=== PATIENT | female | born 1930 | race Caucasian/White ===

== ENCOUNTER 2017-11-06 12:57 | Outpatient (CLI) | payer MEDICARE, BC | END 2017-11-06 12:58 | disposition home or self-care (01) | LOC: ULT 12:57 | PROVIDERS: ATTEND Family Medicine | DX: I50.9 Heart failure, unspecified (principal); R60.0 Localized edema; I34.0 Nonrheumatic mitral (valve) insufficiency; I07.1 Rheumatic tricuspid insufficiency | CPT/HCPCS: 93306 ==

== ENCOUNTER 2019-01-06 14:38 | Inpatient (IN) | payer MEDICARE, BC ==
--- NOTE | 2019-01-06 15:49 | CT ---
CT HEAD WITHOUT CONTRAST: Multiple axial tomograms obtained through the head without IV enhancement. INDICATION: Mental status change. COMPARISON: Comparison is made to a prior head CT of 06/07/2015. FINDINGS: Mild cortical volume loss. Moderate chronic ischemic white matter changes again seen and appear juany lar to the prior study. No evidence of acute mass or infarct. No evidence of hemorrhage. Sinuses a nd mastoids are well aerated. IMPRESSION: Moderately severe chronic ischemic changes again noted. No acute process. Lacunar infarcts cannot b e excluded given the degree of chronic ischemic change. Consider MRI if there are new neurologic def icits to assess for acute lacunar infarcts. POS: [facility]
--- NOTE | 2019-01-06 15:49 | RAD ---
PORTABLE CHEST: INDICATION: Mental status change. COMPARISON: 04/24/2018. FINDINGS: Cardiomegaly. Vascular markings upper normal. No evidence of infiltrate or significant effusion. IMPRESSION: Cardiomegaly. No acute lung process. POS: [facility]
[2019-01-06 16:06] LABS: Bilirubin Negative (Negative); Blood, Urine Small (Negative); Clarity CLEAR (Clear); Glucose, Urine (Dipstick) Negative (Negative); Leukocyte Large (Negative); Nitrite Negative (Negative); Protein, Urine (Dipstick) Trace mg/dL (Neg-Trace); Specific Gravity, Urine 1.009 (1.002-1.036); Urobilinogen 0.2 mg/dL (0.2-1.0)
[2019-01-06 16:07] LABS: Bacteria/HPF 1+ HPF (None Seen); Hyaline Casts/LPF 7-10 HYALINE CAST LPF (0-3 Hyaline); Pathc Cast-AUWi Flag 2.31 (0-2.49); Squamous Epithelial None Seen HPF (0-3)
[2019-01-06] MEDS ORDERED: cefTRIAXone\\ROCEPHIN 2 GM VIAL ONE (16:23)
[2019-01-06 16:28] LABS: Hemoglobin 13.1 g/dL (12.0-16.0); Mean Corpuscular Volume 93.9 fL (78.0-98.0); Mean Platelet Volume 7.8 fL (7.4-10.4); Platelet Count 280 thou/uL (130-400); RBC Distribution Width 18.8 % (11.5-14.5); Red Blood Cell (RBC) Count 4.37 mill/uL (4.20-5.40); White Blood Cell (WBC) Count 7.2 thou/uL (4.8-10.8)
[2019-01-06 16:33] LABS: INR-International Normal Ratio 1.7; PTT 34.2 SEC (22.9-36.1); Prothrombin Time 20.2 SEC (12.0-14.7)
[2019-01-06 16:41] LABS: Anisocytosis SLIGHT = 6-15 cells (100X) (0-5/hpf); Band 1 % (5-11); Eosinophils 2 % (0-10); Lymphocytes 19 % (21-51); MDiff Complete? YES; Monocytes 9 % (0-10); Neutrophil 68 % (42-75); Platelet Morphology Comment Appears Adequate
[2019-01-06 16:48] LABS: Digoxin 1.87 ng/mL (0.8-2.0)
[2019-01-06 16:50] LABS: ALT (SGPT) 20 U/L (8-55); AST (SGOT) 27 U/L (5-34); Albumin 4.1 g/dL (3.4-4.8); Alkaline Phosphatase 151 U/L (40-150); Anion Gap 17 mmol/L (10-20); BUN (Urea Nitrogen) 49 mg/dL (9.8-20.1); Bilirubin, Total 0.7 mg/dL (0.2-1.2); Calc. Creatinine Clearance 0 mL/min (70-130); Carbon Dioxide 32 mmol/L (23-31); Chloride 91 mmol/L (98-107); Estimated GFR-MDRD 35; Globulin 3.2 g/dL (2.4-3.5); Glucose 114 mg/dL (83-110); Potassium 4.2 mmol/L (3.5-5.1); Protein, Total 7.3 g/dL (6.0-8.3); Sodium 136 mmol/L (136-145)
[2019-01-06 17:11] LABS: CKMB 1.5 ng/mL (0-6.6)
[2019-01-06] MEDS ORDERED: Enoxaparin Sodium 60 MG/0.6 ML SYRINGE ONE (17:14)
[2019-01-06] MEDS ORDERED: Diabetic Tussin 200 MG/10 ML UDCUP PO PRN (17:40)
[2019-01-06] MEDS ORDERED: Benzonatate 100 MG CAP PO PRN (17:40)
[2019-01-06] MEDS ORDERED: Bisacodyl 5 MG TAB PO PRN (17:40)
[2019-01-06] MEDS ORDERED: Bisacodyl 10 MG SUPP PR PRN (17:40)
[2019-01-06] MEDS ORDERED: hydrALAZINE 20 MG/ML VIAL SLOW IVP PRN (17:40)
[2019-01-06] MEDS ORDERED: Ondansetron PF 4 MG/2 ML Vial IVP PRN ×2 (17:40)
[2019-01-06] MEDS ORDERED: Nitroglycerin 0.4 MG TAB (25 Tab Bottle) SL PRN (17:40)
[2019-01-06] MEDS ORDERED: Senokot S 8.6-50 MG TAB PO PRN ×2 (17:40)
[2019-01-06] MEDS ORDERED: Calcium Carbonate 500 MG ChewTAB PO PRN (17:40)
[2019-01-06] MEDS ORDERED: cloNIDine 0.1 MG TAB PO PRN (17:40)
[2019-01-06] MEDS ORDERED: Pharmacy to MANAGE WARFARIN PO PRN (18:00)
[2019-01-06 20:22] VITALS: BMI 25.1
[2019-01-06 20:50] LABS: Troponin I 0.041 ng/mL (< 0.028)
[2019-01-06] MEDS ORDERED: Famotidine/PF 20 mg/2ml Vial SLOW IVP SCH (21:00)
[2019-01-06] MEDS: Sodium Chloride 0.9% 1,000 ML IV SCH (21:29)
[2019-01-06] MEDS: Atorvastatin Calcium 40 MG TAB PO SCH (21:30)
[2019-01-07] MEDS: Sodium Chloride 0.9% 1,000 ML IV SCH ×2 (01:37→08:57)
--- NOTE | 2019-01-07 01:43 | HP ---
PRIMARY CARE PHYSICIAN: Maya Villela MD. PRIMARY ELECTION ASSISTANT: William Graf MD. CHIEF COMPLAINT: Confusion. HISTORY OF PRESENTING ILLNESS: Ms. Garcia is an 88-year-old female with past medical history of paroxysmal atrial fibrillation, on chronic anticoagulation with Coumadin, as well as history of coronary artery disease and hypertension, who presented to the emergency room with the above-mentioned complaints. History is mainly obtained by the patient herself, but it is also supplemented by her daughter present at the bedside. According to Ms. Garcia's daughter, she was acting different than usual and was acting confused. The patient's family reports that she got out of rehab on Friday after being admitted [facility]. She has been doing poorly since then. She was more weak when she got out and has been getting home health, but has been in the wheelchair since discharge. She herself denies any chest pain, shortness of breath, nausea, vomiting, diarrhea, abdominal pain, dysuria, frequency or urgency, cough, fever, etc. She was acting different according to the family when she got up at 3:00 a.m. in the morning to try to make breakfast for everybody. She did not remember few things like letting the dogs out in the morning. Because of these symptoms, she was brought into the emergency room. There is also a history of bradycardia with her heart rate being in the high 30s, but I am not sure if this was provided by the family or by the EMS. Upon presentation to the ER, her blood pressure was 170/70 with a heart rate of 56. She underwent general evaluation including a chest x-ray and CT scan of the brain. Her CT scan of the brain showed age-indeterminate lacunar infarction, severe chronic small-vessel ischemic changes. EKG showed rate-controlled atrial fibrillation at 58 beats per minute. She was also found to have subtherapeutic INR with INR of 1.7. Rest of her workup was consistent with mild acute renal insufficiency with creatinine of 1.41 and urinalysis suggestive of UTI. Digoxin level was checked and was unremarkable. She was given Rocephin and one dose of Lovenox 1 mg/kg and is now being admitted for further workup for stroke. She will also be admitted for UTI. PAST MEDICAL HISTORY: 1. Chronic paroxysmal atrial fibrillation, on chronic anticoagulation. 2. History of atrial flutter with ablation history. 3. Coronary artery disease. 4. GERD. 5. Accelerated hypertension. 6. History of UTI. 7. History of breast cancer. 8. History of bladder cancer. PAST SURGICAL HISTORY: 1. Bilateral hip replacement. 2. Breast surgery. 3. Hysterectomy. 4. History of mastectomy. SOCIAL HISTORY: She lives at home with her family. She has six children. She was able to name all of them. She has no history of drug, tobacco, or alcohol abuse. FAMILY HISTORY: Significant for lung cancer in father and Alzheimer's in her mother. ALLERGIES: NO KNOWN MEDICATION ALLERGIES. HOME MEDICATIONS: As listed in the ER records. She is on the followin. Digoxin 125 mcg daily. 2. Colace 100 mg daily. 3. Pepcid 20 mg daily. 4. Lasix 40 mg daily. 5. Lisinopril 10 mg daily. 6. Metoprolol tartrate 50 mg daily. 7. Atorvastatin 40 mg at bedtime. 8. Tylenol p.r.n. 9. Bisacodyl p.r.n. 10. Clonidine p.r.n. 11. Ferrous sulfate 325 daily. 12. Melatonin daily. 13. Metolazone 2.5 mg one tablet to give with Lasix. 14. Tramadol p.r.n. 15. MiraLAX p.r.n. 16. Vitamin C daily. 17. Warfarin 2 mg Friday, Friday, Friday, Friday, Friday and 4 mg on . These medications will further need to be confirmed from her pharmacy. CODE STATUS: Full code discussed with the patient in detail. She is capable to make her own decisions and is awake, alert, and oriented x3. This was also discussed with her daughter and son-in-law present at bedside. LABORATORY DATA: Her CBC is unremarkable. INR 1.7. Serum chemistry showed chloride 91, bicarb 32, BUN 49, creatinine 1.41, blood sugar is 114, alkaline phosphatase slightly elevated at 151. CK-MB is normal. Troponin 0.037. Urinalysis shows large leukocyte esterase, wbc's, some rbc's and plus 1 bacteria. Chest x-ray by my review shows no evidence of pleural effusion, edema, or infiltrate. It has cardiomegaly. CT scan of the brain per my review shows moderately severe chronic small-vessel ischemic changes and possible age-indeterminate lacunar infarction. PHYSICAL EXAMINATION: VITAL SIGNS: Upon presentation, blood pressure 170/70, pulse of 56, respirations 14, temperature 97.7, saturating 95% on room air. GENERAL: No acute distress. Awake, alert, and oriented x3. HEENT: Mucous membrane is moist and pink. No oropharyngeal exudate or erythema. Head is normocephalic and atraumatic. Pupils are equal and reactive to light and accommodation. Extraocular movement intact. NECK: Supple without any lymphadenopathy, JVD, or bruit. CHEST: Clear to auscultation without any wheezing, rales, or rhonchi. HEART: Rate and rhythm is regular without any murmurs, rubs, or gallops. ABDOMEN: Soft, nontender, and nondistended with positive bowel sounds. EXTREMITIES: Free of any cyanosis, clubbing, or edema. NEUROLOGICAL: Nonfocal. SKIN: Free of any rashes or bruises, feels warm and dry to touch. PSYCHIATRIC: Normal affect. IMPRESSION AND PLAN: 1. Atrial fibrillation, currently rate controlled. We will use the beta jayme, but we will reduce the dose to 1/2 from 50 mg to 25 mg daily given the presenting complaint of bradycardia. She will be on quality assurance monitor body and digoxin for now. We will continue her Coumadin. She is subtherapeutic, and in the light of possible CVA, we will bridge her with Lovenox until her INR is therapeutic. We will request Pharmacy to monitor it and we will start her on Coumadin 5 mg daily. We will also obtain a transthoracic echocardiogram. Last one was done in October 2017, which showed a biatrial enlargement with moderate mitral and tricuspid regurgitation, but preserved ejection fraction of 50% to 55%. 2. History of breast cancer, status post mastectomy. 3. History of dyslipidemia. Restart her home medications once confirmed. 4. Code status, full code discussed with the patient in detail as above. 5. Deep venous thrombosis and gastrointestinal prophylaxis. The patient is already on Coumadin. We will add Pepcid. 6. Hypertension. Restart her metoprolol at a lower dose to prevent bradycardia. Hold the lisinopril in light of acute renal insufficiency for now. DISPOSITION: Ms. Garcia is currently being admitted to the hospital for urinary tract infection and rule out cerebrovascular accident. Estimated length of stay at this time is at least 2 to [address] scan is suggestive of lacunar infarction. We will have OT/PT evaluation done as well. Further management will depend upon her clinical course. Job ID: [id number]
[2019-01-07 06:45] LABS: #Lymphocytes 1.5 thou/uL (1.20-3.40); #Neutrophils 4.8 thou/uL (1.40-6.50); %Basophils 0.5 % (0.0-1.0); %Eosinophils 0.6 % (0.0-10.0); %Lymphocytes 19.6 % (21.0-51.0); %Monocytes 13.8 % (0.0-10.0); %Neutrophils 65.5 % (42.0-75.0); Hemoglobin 12.2 g/dL (12.0-16.0); Mean Corpuscular HGB CONC 32.2 g/dL (32.0-36.0); Mean Corpuscular Volume 93.1 fL (78.0-98.0); Mean Platelet Volume 7.7 fL (7.4-10.4); Platelet Count 282 thou/uL (130-400); RBC Distribution Width 18.8 % (11.5-14.5); Red Blood Cell (RBC) Count 4.06 mill/uL (4.20-5.40); White Blood Cell (WBC) Count 7.4 thou/uL (4.8-10.8)
[2019-01-07 06:46] LABS: INR-International Normal Ratio 1.7; Prothrombin Time 20.2 SEC (12.0-14.7)
[2019-01-07 07:01] LABS: Anion Gap 14 mmol/L (10-20); BUN (Urea Nitrogen) 34 mg/dL (9.8-20.1); Calc. Creatinine Clearance 35 mL/min (70-130); Calcium 9.5 mg/dL (7.8-10.44); Carbon Dioxide 31 mmol/L (23-31); Cardiac Risk 2.9 (Less than 4.5); Chloride 95 mmol/L (98-107); Cholesterol 120 mg/dl (< 200 Desired); Estimated GFR-MDRD 45; Glucose 104 mg/dL (83-110); HDL Cholesterol 42 mg/dL (>60 Neg Risk); LDL Cholesterol, Calculated 58 mg/dL; Sodium 136 mmol/L (136-145); Triglycerides 102 mg/dL (Less than 150)
--- NOTE | 2019-01-07 07:36 | PDOC.PN ---
- Subjective Encounter Start Date: 01/07/19 Encounter Start Time: 09:30 Subjective: No complaints overnight. Improved mental status. No pain. No CP/SOB - Objective Resuscitation Status - Order Detail: 01/06/19 18:47 Resuscitation Status Routine Resuscitation Status: FULL: Full Resuscitation Discussed with: discussed with pt and daughter and JACQUIE in detail MAR Reviewed: Yes Vital Signs & Weight: Vital Signs (12 hours) Temp Pulse Resp BP Pulse Ox 01/07/19 04:00 97.3 F L 68 16 166/72 H 98 01/07/19 00:00 98.2 F 77 16 159/71 H 96 01/06/19 20:20 97.5 F L 55 L 13 180/72 H 97 01/06/19 20:07 97.3 F L 57 L 16 153/68 H 98 01/06/19 20:00 97 Weight Weight 142 lb Result Diagrams: 01/07/19 06:06 01/07/19 06:06 Radiology Reviewed by me: Yes (MRI without acute stroke) Phys Exam - Physical Examination Constitutional: NAD HEENT: moist MMs Respiratory: no wheezing, no rales, no rhonchi Cardiovascular: RRR, no significant murmur Gastrointestinal: soft, positive bowel sounds Neurological: non-focal, moves all 4 limbs Psychiatric: normal affect Dx/Plan (1) Urinary tract infection Status: Suspected Comment: growing gram neg rods in urine culture, on Rocephin since 01/06/19 (2) Acute metabolic encephalopathy Code(s): G93.41 - METABOLIC ENCEPHALOPATHY Status: Acute Comment: secondary to UTI (3) Paroxysmal atrial fibrillation Code(s): I48.0 - PAROXYSMAL ATRIAL FIBRILLATION Status: Chronic Comment: subtherapeutic INR, Warfarin and started on full dose Lovenox (4) CAD (coronary artery disease) Code(s): I25.10 - ATHSCL HEART DISEASE OF [place] CORONARY ARTERY W/O ANG PCTRS Status: Chronic Comment: Stable. (5) Dyslipidemia Code(s): E78.5 - HYPERLIPIDEMIA, UNSPECIFIED Status: Chronic (6) Hypertension Code(s): I10 - ESSENTIAL (PRIMARY) HYPERTENSION Status: Chronic Qualifiers: Hypertension type: essential hypertension Qualified Code(s): I10 - Essential (primary) hypertension (7) GERD (gastroesophageal reflux disease) Code(s): K21.9 - GASTRO-ESOPHAGEAL REFLUX DISEASE WITHOUT ESOPHAGITIS Status: Chronic Comment: on Pepcid - Plan cont current plan of care, continue antibiotics, PT/OT, DVT proph w/lovenox, DVT proph w/SCDs continue IV abx -: MRI negative, will cancel neuro consult, no evidence CVA/TIA at this -: time * . - Discharge Day Encounter end time: 09:40
--- NOTE | 2019-01-07 07:57 | MRI ---
Exam: Brain MRI without contrast HISTORY: Transient ischemic attack. Altered mental status. COMPARISON: None FINDINGS: Calvarial marrow signal intensity: Appropriate T1 signal Gradient echo sequence: No hemorrhage Brain parenchyma: No mass, mass effect or midline shift. Brain volume, age-appropriate. Cortical am[place]quita-white matter differentiation: Preserved Restricted diffusion: Central arterial flow voids are maintained. Absent restricted diffusion White matter signal intensities: T2, FLAIR white matter hyperintensities due to chronic small vessel ischemic changes Sinuses: Adequate aeration of the paranasal sinuses and mastoid air cells. IMPRESSION: 1. Absent restricted diffusion. No acute infarct 2. Age-appropriate atrophy. 3. Chronic small vessel ischemic changes of the white matter.
[2019-01-07] MEDS: Aspirin 325 mg Enteric Coated Tablet PO SCH (08:57)
[2019-01-07] MEDS: Famotidine 20 MG TAB PO SCH (08:57)
[2019-01-07] MEDS: hydrALAZINE 20 MG/ML VIAL SLOW IVP PRN (13:00)
[2019-01-07] MEDS: cefTRIAXone\\ROCEPHIN 1 GM in Sodium Chloride 0.9% 100 ML IVPB SCH (16:59)
[2019-01-07] MEDS: Enoxaparin Sodium 60 MG/0.6 ML SYRINGE SC SCH (17:00)
[2019-01-07] MEDS: Warfarin Sodium 5 MG TAB PO SCH (17:00)
[2019-01-07] MEDS: Acetaminophen 325 MG TAB PO PRN (17:03)
[2019-01-07] MEDS: Atorvastatin Calcium 40 MG TAB PO SCH (21:53)
[2019-01-07] MEDS: Melatonin 3 MG TAB PO PRN (21:53)
[2019-01-08 05:51] LABS: INR-International Normal Ratio 1.7; Prothrombin Time 19.8 SEC (12.0-14.7)
[2019-01-08 06:01] LABS: Anion Gap 15 mmol/L (10-20); BUN (Urea Nitrogen) 21 mg/dL (9.8-20.1); Calc. Creatinine Clearance 43 mL/min (70-130); Calcium 9.2 mg/dL (7.8-10.44); Carbon Dioxide 26 mmol/L (23-31); Chloride 102 mmol/L (98-107); Estimated GFR-MDRD 57; Glucose 95 mg/dL (83-110); Potassium 3.9 mmol/L (3.5-5.1); Sodium 139 mmol/L (136-145)
[2019-01-08] MEDS: Sodium Chloride 0.9% 1,000 ML IV SCH ×2 (06:17→08:49)
[2019-01-08] MEDS: Aspirin 325 mg Enteric Coated Tablet PO SCH (08:49)
[2019-01-08] MEDS: Famotidine 20 MG TAB PO SCH (08:49)
[2019-01-08] MEDS ORDERED: Sodium Chloride 0.9% 1,000 ML IV SCH (13:15)
--- NOTE | 2019-01-08 15:53 | PDOC.PN ---
- Subjective Encounter Start Date: 01/08/19 Encounter Start Time: 11:15 Subjective: pt drowsy but arousable, follows command and answers questions - Objective Resuscitation Status - Order Detail: 01/06/19 18:47 Resuscitation Status Routine Resuscitation Status: FULL: Full Resuscitation Discussed with: discussed with pt and daughter and JACQUIE in detail Vital Signs & Weight: Vital Signs (12 hours) Temp Pulse Resp BP BP Pulse Ox 01/08/19 15:47 98.4 F 64 16 130/63 97 01/08/19 11:33 98.6 F 78 16 182/75 H 97 01/08/19 11:30 182/75 H 01/08/19 08:40 97 01/08/19 07:56 98.5 F 86 18 142/65 H 94 L 01/08/19 04:00 98.3 F 83 19 177/79 H 97 Weight Admit Weight 142 lb Weight 142 lb Result Diagrams: 01/07/19 06:06 01/08/19 05:22 Phys Exam - Physical Examination Respiratory: no wheezing, no rales, no rhonchi, wheezing present, clear to auscultation bilateral Cardiovascular: RRR, no significant murmur, no rub, gallop, irregular Gastrointestinal: soft, non-tender, no distention, positive bowel sounds Musculoskeletal: no edema, pulses present, edema present Neurological: non-focal, normal sensation, moves all 4 limbs Dx/Plan (1) Acute metabolic encephalopathy Code(s): G93.41 - METABOLIC ENCEPHALOPATHY Status: Acute Comment: secondary to UTI (2) Atrial fibrillation Code(s): I48.91 - UNSPECIFIED ATRIAL FIBRILLATION Status: Chronic Qualifiers: Atrial fibrillation type: chronic Qualified Code(s): I48.2 - Chronic atrial fibrillation Comment: Rate controlled, on coumadin and therapeutic. (3) Hypertension Code(s): I10 - ESSENTIAL (PRIMARY) HYPERTENSION Status: Chronic Qualifiers: Hypertension type: essential hypertension Qualified Code(s): I10 - Essential (primary) hypertension (4) Urinary tract infection Status: Suspected Comment: growing gram neg rods in urine culture, on Rocephin since 01/06/19 - Plan will continue abx for now -: pt did not sleep last night, explained in details to pt's family -: about delirum. Pt will need dementia screen when she is back to her -: baseline. * . Review of Systems - Review of Systems Respiratory: negative: Cough, Dry, Shortness of Breath, Hemoptysis, SOB with Excertion, Pleuritic Pain, Sputum, Wheezing Cardiovascular: negative: chest pain, palpitations, orthopnea, paroxysmal nocturnal dyspnea, edema, light headedness, other Gastrointestinal: negative: Nausea, Vomiting, Abdominal Pain, Diarrhea, Constipation, Melena, Hematochezia, Other - Medications/Allergies Allergies/Adverse Reactions: Allergies Allergy/AdvReac Type Severity Reaction Status Date / Time nitrofurantoin Allergy Verified 01/06/19 22:57 [From Macrobid] Medications: Current Medications Acetaminophen (Tylenol) 650 mg PO Q4H PRN PRN Reason: Headache/Fever/Mild Pain (1-3) Last Admin: 01/07/19 17:03 Dose: 650 mg Aspirin (Ecotrin) 325 mg PO DAILY [facility] Last Admin: 01/08/19 08:49 Dose: 325 mg Atorvastatin Calcium (Lipitor) 40 mg PO HS [facility] Last Admin: 01/07/19 21:53 Dose: 40 mg Benzonatate (Tessalon) 100 mg PO Q6H PRN PRN Reason: Cough Bisacodyl (Dulcolax) 10 mg PO DAILYPRN PRN PRN Reason: Constipation Bisacodyl (Dulcolax) 10 mg [place] DAILYPRN PRN PRN Reason: Constipation Calcium Carbonate (Tums) 1,000 mg PO Q4H PRN PRN Reason: Heartburn or Indigestion Clonidine (Catapres) 0.1 mg PO Q4H PRN PRN Reason: SBP > 160____ Last Admin: 01/08/19 11:30 Dose: 0.1 mg Enoxaparin Sodium (Lovenox) 60 mg SC 1700 [facility] Last Admin: 01/07/19 17:00 Dose: 60 mg Famotidine (Pepcid) 20 mg PO DAILY [facility] Last Admin: 01/08/19 08:49 Dose: 20 mg Guaifenesin (Robitussin Sf) 200 mg PO Q4H PRN PRN Reason: Cough Hydralazine HCl (Apresoline) 10 mg SLOW IVP Q4H PRN PRN Reason: SBP > 170 and HR < 70 Last Admin: 01/07/19 13:00 Dose: 10 mg Ceftriaxone Sodium 1 gm/ (Sodium Chloride) 100 mls @ 200 mls/hr IVPB Q24HR [facility] Last Admin: 01/07/19 16:59 Dose: 100 mls Sodium Chloride (Normal Saline 0.9%) 1,000 mls @ 30 mls/hr IV .Q24H [facility] Last Admin: 01/08/19 13:29 Dose: 1,000 mls Melatonin (Melatonin) 3 mg PO HSPRN PRN PRN Reason: Insomnia Last Admin: 01/07/19 21:53 Dose: 3 mg Metoprolol Succinate (Toprol Xl) 25 mg PO DAILY [facility] Last Admin: 01/08/19 08:49 Dose: 25 mg Miscellaneous Medication (Pharmacy To Dose) 1 each PO PRN PRN PRN Reason: . Nitroglycerin (Nitrostat) 0.4 mg SL Q5MIN PRN PRN Reason: Chest Pain Ondansetron HCl (Zofran) 4 mg IVP Q6H PRN PRN Reason: Nausea/Vomiting Quetiapine Fumarate (Seroquel) 25 mg PO HS PRN PRN Reason: Agitation Senna/Docusate Sodium (Senokot S) 2 tab PO BID PRN PRN Reason: Constipation Sodium Chloride (Flush - Normal Saline) 10 ml IVF PRN PRN PRN Reason: Saline Flush Sodium Chloride (Flush - Normal Saline) 10 ml IVF PRN PRN PRN Reason: Saline Flush Warfarin Sodium (Coumadin) 5 mg PO 1700 [facility] Last Admin: 01/07/19 17:00 Dose: 5 mg
[2019-01-08] MEDS: cefTRIAXone\\ROCEPHIN 1 GM in Sodium Chloride 0.9% 100 ML IVPB SCH (16:39)
[2019-01-08] MEDS: Warfarin Sodium 5 MG TAB PO SCH (16:40)
[2019-01-08] MEDS: Enoxaparin Sodium 60 MG/0.6 ML SYRINGE SC SCH (16:40)
[2019-01-08] MEDS: Atorvastatin Calcium 40 MG TAB PO SCH (21:31)
[2019-01-09 05:47] LABS: INR-International Normal Ratio 1.9; Prothrombin Time 21.7 SEC (12.0-14.7)
[2019-01-09] MEDS: Acetaminophen 325 MG TAB PO PRN (06:18)
[2019-01-09] MEDS ORDERED: Polyethylene Glycol 3350 17 GM Packet PO PRN (08:37)
[2019-01-09] MEDS ORDERED: Docusate 100 MG CAP PO PRN (08:38)
[2019-01-09] MEDS ORDERED: Furosemide 20 MG TAB PO SCH (09:00)
[2019-01-09] MEDS: Aspirin 325 mg Enteric Coated Tablet PO SCH (10:12)
[2019-01-09] MEDS: Furosemide 40 MG TAB PO SCH (10:13)
[2019-01-09] MEDS: Lisinopril 10 MG TAB PO SCH ×2 (10:15→20:27)
[2019-01-09] MEDS: Metoprolol Tartrate 100 MG TAB PO SCH ×2 (10:15→20:27)
[2019-01-09] MEDS: Magnesium Oxide 400 MG TAB PO SCH (10:16)
[2019-01-09] MEDS: Famotidine 20 MG TAB PO SCH (10:17)
[2019-01-09] MEDS: hydrALAZINE 20 MG/ML VIAL SLOW IVP PRN (12:48)
--- NOTE | 2019-01-09 14:47 | PDOC.PN ---
- Subjective Encounter Start Date: 01/09/19 Encounter Start Time: 10:30 Subjective: pt more awake today - Objective Resuscitation Status - Order Detail: 01/06/19 18:47 Resuscitation Status Routine Resuscitation Status: FULL: Full Resuscitation Discussed with: discussed with pt and daughter and JACQUIE in detail Vital Signs & Weight: Vital Signs (12 hours) Temp Pulse Resp BP BP Pulse Ox 01/09/19 12:48 60 170/71 H 01/09/19 12:00 97.8 F 60 20 179/80 H 96 01/09/19 10:19 96 01/09/19 10:15 157/72 H 01/09/19 08:08 97.5 F L 78 18 157/72 H 96 01/09/19 04:00 97.7 F 86 16 197/95 H 94 L Weight Admit Weight 142 lb Weight 142 lb Result Diagrams: 01/07/19 06:06 01/08/19 05:22 Phys Exam - Physical Examination Respiratory: no wheezing, no rales, no rhonchi, wheezing present, clear to auscultation bilateral Cardiovascular: RRR, no significant murmur, no rub, gallop, irregular Gastrointestinal: soft, non-tender, no distention, positive bowel sounds Musculoskeletal: no edema, pulses present, edema present Dx/Plan (1) Acute metabolic encephalopathy Code(s): G93.41 - METABOLIC ENCEPHALOPATHY Status: Acute Comment: secondary to UTI (2) Atrial fibrillation Code(s): I48.91 - UNSPECIFIED ATRIAL FIBRILLATION Status: Chronic Qualifiers: Atrial fibrillation type: chronic Qualified Code(s): I48.2 - Chronic atrial fibrillation Comment: Rate controlled, on coumadin and therapeutic. (3) Hypertension Code(s): I10 - ESSENTIAL (PRIMARY) HYPERTENSION Status: Chronic Qualifiers: Hypertension type: essential hypertension Qualified Code(s): I10 - Essential (primary) hypertension (4) Urinary tract infection Status: Suspected Comment: growing gram neg rods in urine culture, on Rocephin since 01/06/19 - Plan will stop her fluids and restart her home meds. abx changed to cipro -: will get PT to see pt. possible discharge in 1-2 days * . Review of Systems - Review of Systems Respiratory: negative: Cough, Dry, Shortness of Breath, Hemoptysis, SOB with Excertion, Pleuritic Pain, Sputum, Wheezing Cardiovascular: negative: chest pain, palpitations, orthopnea, paroxysmal nocturnal dyspnea, edema, light headedness, other Gastrointestinal: negative: Nausea, Vomiting, Abdominal Pain, Diarrhea, Constipation, Melena, Hematochezia, Other - Medications/Allergies Allergies/Adverse Reactions: Allergies Allergy/AdvReac Type Severity Reaction Status Date / Time nitrofurantoin Allergy Verified 01/06/19 22:57 [From Macrobid] Medications: Current Medications Acetaminophen (Tylenol) 650 mg PO Q4H PRN PRN Reason: Headache/Fever/Mild Pain (1-3) Last Admin: 01/09/19 06:18 Dose: 650 mg Aspirin (Ecotrin) 325 mg PO DAILY [facility] Last Admin: 01/09/19 10:12 Dose: 325 mg Atorvastatin Calcium (Lipitor) 40 mg PO HS [facility] Last Admin: 01/08/19 21:31 Dose: 40 mg Benzonatate (Tessalon) 100 mg PO Q6H PRN PRN Reason: Cough Bisacodyl (Dulcolax) 10 mg [place] DAILYPRN PRN PRN Reason: Constipation Calcium Carbonate (Tums) 1,000 mg PO Q4H PRN PRN Reason: Heartburn or Indigestion Digoxin (Lanoxin) 0.125 mg PO DAILY [facility] Docusate Sodium (Colace) 100 mg PO BID PRN PRN Reason: Constipation Enoxaparin Sodium (Lovenox) 60 mg SC 1700 [facility] Last Admin: 01/08/19 16:40 Dose: 60 mg Famotidine (Pepcid) 20 mg PO DAILY [facility] Last Admin: 01/09/19 10:17 Dose: 20 mg Ferrous [facility]) [facility] Furosemide (Lasix) 40 mg PO DAILY [facility] Last Admin: 01/09/19 10:13 Dose: 40 mg Guaifenesin (Robitussin Sf) 200 mg PO Q4H PRN PRN Reason: Cough Hydralazine HCl (Apresoline) 10 mg SLOW IVP Q4H PRN PRN Reason: SBP > 170 and HR < 70 Last Admin: 01/09/19 12:48 Dose: 10 mg Ciprofloxacin/Dextrose 400 mg/ (Device) 200 mls @ 200 mls/hr IVPB Q12HR [facility] Last Admin: 01/09/19 10:19 Dose: 200 mls Lisinopril (Zestril) 10 mg PO BID [facility] Last Admin: 01/09/19 10:15 Dose: 10 mg Magnesium Oxide (Magnesium Oxide) 400 mg PO DAILY [facility] Last Admin: 01/09/19 10:16 Dose: 400 mg Melatonin (Melatonin) 3 mg PO HSPRN PRN PRN Reason: Insomnia Last Admin: 01/07/19 21:53 Dose: 3 mg Metoprolol Tartrate (Lopressor) 100 mg PO BID [facility] Last Admin: 01/09/19 10:15 Dose: 100 mg Miscellaneous Medication (Pharmacy To Dose) 1 each PO PRN PRN PRN Reason: . Nitroglycerin (Nitrostat) 0.4 mg SL Q5MIN PRN PRN Reason: Chest Pain Ondansetron HCl (Zofran) 4 mg IVP Q6H PRN PRN Reason: Nausea/Vomiting Polyethylene Glycol (Miralax) 17 gm PO DAILY PRN PRN Reason: Constipation Quetiapine Fumarate (Seroquel) 25 mg PO HS PRN PRN Reason: Agitation Sodium Chloride (Flush - Normal Saline) 10 ml IVF PRN PRN PRN Reason: Saline Flush Warfarin Sodium (Coumadin) 5 mg PO 1700 [facility] Last Admin: 01/08/19 16:40 Dose: 5 mg
[2019-01-09 16:55] LABS: Hemoglobin 11.9 g/dL (12.0-16.0); Platelet Count 256 thou/uL (130-400)
[2019-01-09] MEDS: Ferrous Sulfate 325 MG TAB PO SCH (17:25)
[2019-01-09] MEDS: Warfarin Sodium 5 MG TAB PO SCH (17:26)
[2019-01-09] MEDS: Enoxaparin Sodium 60 MG/0.6 ML SYRINGE SC SCH (17:27)
--- NOTE | 2019-01-09 18:00 | EKG ---
Test Reason : BRADYCARDIA Blood Pressure : / mmHG Vent. Rate : 058 BPM Atrial Rate : 277 BPM P-R Int : 000 ms QRS Dur : 084 ms QT Int : 420 ms P-R-T Axes : 000 -35 029 degrees QTc Int : 412 ms Atrial fibrillation with slow ventricular response Left axis deviation Nonspecific ST and T wave abnormality , probably digitalis effect Abnormal ECG Confirmed by MEY CHUN DO ([id number]), metropolitan editor JAY DUKE ([id number]) on 01/09/2019 6:00:09 PM Referred By: Confirmed By:MEY CHUN DO
[2019-01-09] MEDS: Melatonin 3 MG TAB PO PRN (20:27)
[2019-01-09] MEDS: Atorvastatin Calcium 40 MG TAB PO SCH (20:27)
[2019-01-09] MEDS ORDERED: Atorvastatin Calcium 40 MG TAB PO SCH (21:00)
--- NOTE | 2019-01-09 21:42 | PDOC.EVN ---
Event Note - Event Note Event Note: Patient's L IV infiltrated, and no access on the right secondary to Hx of mastectomy. Per review of Dr. Chambers's note, she is to be discharged in the next day or so. Will switch to oral abx. Care discussed with Dr. Lewis
[2019-01-10] MEDS ORDERED: Ciprofloxacin 500 MG TAB PO SCH (06:00)
[2019-01-10] MEDS: Lisinopril 10 MG TAB PO SCH (08:03)
[2019-01-10] MEDS: Furosemide 40 MG TAB PO SCH (08:07)
[2019-01-10] MEDS: Metoprolol Tartrate 100 MG TAB PO SCH (08:07)
[2019-01-10] MEDS: Aspirin 325 mg Enteric Coated Tablet PO SCH (08:08)
[2019-01-10] MEDS: Ferrous Sulfate 325 MG TAB PO SCH (08:09)
[2019-01-10] MEDS: Famotidine 20 MG TAB PO SCH (08:11)
[2019-01-10] MEDS: Magnesium Oxide 400 MG TAB PO SCH (08:11)
[2019-01-10] MEDS ORDERED: Lisinopril 10 MG TAB PO SCH ×2 (08:28→09:15)
[2019-01-10] MEDS ORDERED: Lisinopril 20 MG TAB PO SCH (09:00)
[2019-01-10] MEDS ORDERED: Amlodipine 10 MG TAB PO SCH (09:00)
[2019-01-10] MEDS ORDERED: Digoxin 0.125 MG TAB PO SCH ×3 (09:00)
[2019-01-10 12:12] VITALS: BP 136/67; TEMP 98.4
--- NOTE | 2019-01-11 02:32 | DIS ---
DATE OF ADMISSION: 01/06/2019 DATE OF DISCHARGE: 01/10/2019 DISCHARGE DIAGNOSES: As of the followin. Acute metabolic encephalopathy. 2. Urinary tract infection. 3. Atrial fibrillation. 4. Hypertension. HOSPITAL COURSE: The patient is an 88-year-old female, who initially presented to the hospital with acute confusion. According to the notes, it was noted that her heart rate was fluctuating in the low 30s to high 40s. The patient was on metoprolol and also was on digoxin. Her metoprolol was decreased to 25 mg daily and her digoxin level at that time was close to the therapeutic range at 1.87. The patient also was treated for UTI. Her mentation continued to improve. Her UTI indicated Citrobacter freundii. She was initially on ceftriaxone which was resistant to it, so she was changed to ciprofloxacin. The patient continued to improve throughout the hospital stay. There was some issues in terms of possible patient having sundowning. I did address this with the family and recommended to get an outpatient dementia workup on this patient once she is back to her baseline. Also, I called the daughter, Yola, updated her on the discharge planning and the changes that I have made to her medications including discontinuing the digoxin and decreasing her dose of metoprolol and also adding additional medications and upping her other blood pressure medications due to some uncontrolled blood pressure. I also recommended to check an INR on Friday with the [facility] and also follow up with her PCP in about a week. Physical Therapy did evaluate her. She was able to ambulate with minimal assistance. Family was okay to take the patient home. PHYSICAL EXAMINATION: VITAL SIGNS: Temperature 98.4, 81, 20, 96% on room air, 136/67. GENERAL: She is awake, alert, and oriented x3. Does not appear in distress. CV: S1, S2 present. No murmurs, rubs, or gallops. ABDOMEN: Soft and nontender. Bowel sounds are present x2. EXTREMITIES: No edema. Pedal pulses are present x2. HOME MEDICATIONS: She is going to be on, 1. Norvasc 10 mg daily. 2. Ciprofloxacin 500 mg b.i.d. 3. Lasix 40 mg daily. 4. Lisinopril 20 mg b.i.d. 5. Metoprolol 25 mg b.i.d. 6. I did add some quetiapine 12.5, just 10 pills. 7. Warfarin. 8. Pepcid 20 mg b.i.d. 9. Iron 325 b.i.d. 10. Magnesium 400 mg daily. 11. Melatonin 3 mg p.o. at bedtime. 12. Zaroxolyn 2.5 mg p.o. daily. 13. I did decrease her Lasix from 40 mg b.i.d. to 40 mg daily. She will again follow up with her primary care doctor. I had to add the Norvasc given her significant elevation of blood pressure. She will follow up with her primary care doctor as an outpatient. Thank you very much. Job ID: [id number]
== END 2019-01-10 15:37 | disposition home health service (06) | DRG 689 ==
LOC: ERS 14:38 → 2SE 17:42
PROVIDERS: ADMIT Internal Medicine; ATTEND Internal Medicine
DX: N39.0 Urinary tract infection, site not specified (principal); G93.41 Metabolic encephalopathy; I48.0 Paroxysmal atrial fibrillation; I10 Essential (primary) hypertension; B96.89 Other specified bacterial agents as the cause of diseases classified elsewhere; I25.10 Atherosclerotic heart disease of native coronary artery without angina pectoris; K21.9 Gastro-esophageal reflux disease without esophagitis; N28.9 Disorder of kidney and ureter, unspecified; Z79.01 Long term (current) use of anticoagulants; Z85.3 Personal history of malignant neoplasm of breast; Z85.51 Personal history of malignant neoplasm of bladder
CPT/HCPCS: 36415; 51701; 70450; 70551; 71045; 80048; 80053; 80061; 80162; 81003; 81015; 82553; 82565; 84484; 85014; 85018; 85025; 85049; 85610; 85730; 87077; 87086; 87186; 93005; 93306; 96365; 96372; A4353; J0360; J0696; J0744; J1650; J3490